=== PATIENT | female | born 1975 | race African-American/Black ===

== ENCOUNTER 2019-01-02 10:45 | Emergency (ER) | payer OTHER ==
[2019-01-02 10:56] VITALS: BP 130/93; PULSE 90; TEMP 98.5; BMI 17.7
[2019-01-02] MEDS ORDERED: IBUPROFEN 600 MG TABLET (FP) PO ONE ×2 (11:42→11:45)
[2019-01-02] MEDS ORDERED: AMOX TR/POT CLAV 875MG/125MG TABLETS (FP) PO ONE (11:42)
[2019-01-02] MEDS ORDERED: AMOX TR/POT CLAV 875MG/125MG TABLETS (FP) ONE (11:45)
--- NOTE | 2019-01-02 11:49 | PDOC ---
History of Present Illness - General Chief Complaint: Cold Symptoms Stated Complaint: SINUS INFECTION Time Seen by Provider: 01/02/19 11:19 History Source: Patient Exam Limitations: No Limitations - History of Present Illness Initial Comments: 01/02/19 12:20 Patient came to emergency department with complaints of left sided headache pain , jaw pain and multiple dental issues. States has had swollen lymph nodes to her scalp and posterior neck for many months where they're uncertain as to why. Patient is currently homeless, staying with various family members, has had multiple issues socially and is unable to care for self and she previously had. Patient denies fever, denies any swelling to her face however has exquisite pain that radiates into her jaw and left ear. Has cracked upper left molar and multiple missing teeth in various stages of decay. Timing/Duration: reports: getting worse Severity: reports: moderate Associated Symptoms: reports: facial pain, nasal congestion. denies: cough, earache, fever/chills Past History - Travel Traveled outside of the country in the last 30 days: No Close contact w/someone who was outside of country & ill: No - Past Medical History Allergies/Adverse Reactions: Allergies Allergy/AdvReac Type Severity Reaction Status Date / Time No Known Allergies Allergy Verified 01/02/19 10:51 Home Medications: Ambulatory Orders Amoxicillin - [Amoxicillin 500mg Capsule -] 500 mg PO TID #21 capsule 01/02/19 COPD: No CHF: No - Immunization History Immunization Up to Date: No - Suicide/Smoking/Psychosocial Hx Smoking History: Former smoker Have you smoked in the past 12 months: No If you are a former smoker, when did you quit?: 2019 Information on smoking cessation initiated: No Hx Alcohol Use: No Drug/Substance Use Hx: No Review of Systems - Review of Systems Able to Perform ROS?: Yes Is the patient limited [place] proficient: Yes Constitutional: Yes: Symptoms Reported, See HPI, Chills, Loss of Appetite, Malaise. No: Fever HEENTM: Yes: Symptoms Reported, See HPI ABD/GI: No: Symptoms Reported : No: Symptoms Reported Musculoskeletal: No: Symptoms Reported Integumentary: No: Symptoms Reported All Other Systems: Reviewed and Negative *Physical Exam - Vital Signs Last Vital Signs Temp Pulse Resp BP Pulse Ox 98.5 F 90 16 130/93 97 01/02/19 10:51 01/02/19 10:51 01/02/19 10:51 01/02/19 10:51 01/02/19 10:51 - Physical Exam General Appearance: Yes: Nourished, Appropriately Dressed, Apparent Distress, Mild Distress, Moderate Distress HEENT: positive: MARIA ISABEL, Pharynx Normal, Other (extensive dental issue with multiple caries, missing teeth, and cracked upper left tooth. No abscess noted to gingival borders, no swelling to face.). negative: TMs Normal (bilateral ears canals clogged with cerumen, unable to visualize TMs.) Neck: positive: Tender (lymphadenopathy to occiput and posterior cervical chains ), Lymphadenopathy (R), Lymphadenopathy (L) Respiratory/Chest: positive: Lungs Clear, Normal Breath Sounds Gastrointestinal/Abdominal: positive: Soft. negative: Tender Musculoskeletal: positive: Normal Inspection. negative: CVA Tenderness Extremity: positive: Normal Capillary Refill, Normal Inspection Integumentary: positive: Dry, Warm, Pale Neurologic: positive: financial analyst intern II-XII NML intact, Fully Oriented, Alert, Normal Mood/ Affect, Normal Response, Motor Strength 5/5 Progress Note - Progress Note Progress Note: Extensive dental issue, we will start amoxicillin and encouraged to seek dental evaluation for possible further extractions and treatment. *DC/Admit/Observation/Transfer Diagnosis at time of Disposition: Pain, dental - Discharge Dispostion Disposition: HOME Condition at time of disposition: Stable Decision to Admit order: No - Referrals Referrals: [facility] [Outside] - Patient Instructions Printed Discharge Instructions: DI for Dental Pain Additional Instructions: Rest, drink lots of fluids: Teas, water, soups Saltwater gargles/ keep mouth clean and rinse after each meal May use wet teabag for pain relief to area Avoid hard chewing foods, stick to ice cream, Jell-O, yogurt etc. Tylenol or Motrin for fever and pain Complete all medication as prescribed Seek dental appointment as soon as possible for evaluation of dental injury/pain Followup with private physician in one to 2 days as needed Return to emergency department for worsened symptoms, fevers, swelling to face or worsened pain - Post Discharge Activity
== END 2019-01-02 12:28 | disposition home or self-care (01) ==
LOC: JERFT 10:45
DX: K08.89 Other specified disorders of teeth and supporting structures (principal)
CPT/HCPCS: 99281-25

== ENCOUNTER 2022-06-02 23:00 | Observation (INO) | payer OTHER ==
[2022-06-03] MEDS ORDERED: IBUPROFEN 400 MG TABLET (FP) PO ONE ×2 (02:34→03:35)
[2022-06-03] MEDS ORDERED: ACETAMINOPHEN 1000 MG/100 ML BAG IVPB ONE ×2 (04:26→12:49)
[2022-06-03] MEDS ORDERED: ACETAMINOPHEN INJECTION 100 ML IVPB ONE ×2 (04:48→13:17)
[2022-06-03 06:53] LABS: BASO % 0.9 % (0-2.0); EOS % 10.4 % (0-4.5); HEMOGLOBIN 11.7 GM/dL (10.7-15.3); LYMPH % 20.8 % (8-40); MCH 29.5 pg (25.7-33.7); MCHC 33.4 g/dl (32.0-36.0); MEAN CELL VOLUME 88.1 fl (80-96); MONO % 7.9 % (3.8-10.2); PLATELET COUNT 249 10^3/uL (134-434); RBC 3.97 M/mm3 (3.60-5.2); RDW 14.7 % (11.6-15.6); WHITE BLOOD COUNT 6.4 K/mm3 (4.0-10.0)
[2022-06-03 07:13] LABS: CALCIUM 8.1 mg/dL (8.5-10.1)
[2022-06-03 07:14] LABS: ALBUMIN 3.1 g/dl (3.4-5.0); BLOOD UREA NITROGEN 10.8 mg/dL (7-18)
[2022-06-03 07:17] LABS: CREATININE 0.6 mg/dL (0.55-1.3)
[2022-06-03 07:18] LABS: BILIRUBIN,TOTAL 0.5 mg/dL (0.2-1); TOT PROT 7.6 g/dl (6.4-8.2)
[2022-06-03] MEDS ORDERED: LIDOCAINE 5% TOPICAL PATCH TP ONE (09:25)
[2022-06-03] MEDS ORDERED: LIDOCAINE 5% TOPICAL PATCH ONE (10:31)
[2022-06-03] MEDS ORDERED: KETOROLAC TROMETHAMINE 15 MG/ML VIAL IVPUSH ONE (12:48)
[2022-06-03] MEDS ORDERED: KETOROLAC TROMETHAMINE 15 MG/ML VIAL ONE (13:18)
[2022-06-03] MEDS ORDERED: KETOROLAC TROMETHAMINE 30 MG/1 ML VIAL IM ONE ×2 (13:21→16:57)
[2022-06-03] MEDS ORDERED: ACETAMINOPHEN 500 MG TABLET (FP) PO ONE ×2 (13:21→16:57)
[2022-06-03] MEDS ORDERED: KETOROLAC TROMETHAMINE 30 MG/1 ML VIAL ONE (13:24)
[2022-06-03] MEDS ORDERED: ACETAMINOPHEN 325 MG TABLET (FP) ONE (13:25)
[2022-06-03] MEDS: ACETAMINOPHEN 1000 MG/100 ML BAG IVPB PRN (21:07)
[2022-06-03] MEDS ORDERED: LIDOCAINE PATCH REMOVAL MC SCH (22:00)
[2022-06-03 23:46] VITALS: BMI 18.1
[2022-06-04] MEDS: ACETAMINOPHEN 1000 MG/100 ML BAG IVPB PRN (08:02)
[2022-06-04 10:44] LABS: BASO % 0.9 % (0-2.0); EOS % 9.2 % (0-4.5); HEMATOCRIT 33.4 % (32.4-45.2); LYMPH % 24.6 % (8-40); MCH 29.2 pg (25.7-33.7); MCHC 32.8 g/dl (32.0-36.0); MEAN CELL VOLUME 89.1 fl (80-96); MONO % 7.6 % (3.8-10.2); NEUT % 57.7 % (42.8-82.8); PLATELET COUNT 231 10^3/uL (134-434); RBC 3.75 M/mm3 (3.60-5.2); RDW 14.8 % (11.6-15.6); WHITE BLOOD COUNT 6.3 K/mm3 (4.0-10.0)
[2022-06-04] MEDS: ELVITEG/COB/EMTRI/TENOF (GENVOYA) TABLET (NF) PO SCH (10:47)
[2022-06-04] MEDS: ENOXAPARIN NA (PORCINE) 40 MG/0.4 ML DISP.SYRIN SQ SCH (10:48)
[2022-06-04 10:51] LABS: INR 1.13 (0.83-1.09)
[2022-06-04 10:54] LABS: ACTIVATED PTT 27.2 SECONDS (25.2-36.5)
[2022-06-04 11:20] LABS: CALCIUM 8.2 mg/dL (8.5-10.1)
[2022-06-04 11:21] LABS: ALBUMIN 2.9 g/dl (3.4-5.0); BLOOD UREA NITROGEN 18.3 mg/dL (7-18); MAGNESIUM 1.9 mg/dL (1.8-2.4)
[2022-06-04 11:24] LABS: CREATININE 0.7 mg/dL (0.55-1.3); PHOSPHOROUS 3.6 mg/dL (2.5-4.9)
[2022-06-04 11:25] LABS: BILIRUBIN,TOTAL 0.6 mg/dL (0.2-1); TOT PROT 7.3 g/dl (6.4-8.2)
[2022-06-04 11:53] LABS: ERYTHROCYTE SEDIMENTATION RATE 40 mm/hr (0-20)
[2022-06-04] MEDS: GABAPENTIN 100 MG CAPSULE PO SCH ×2 (13:50→21:05)
[2022-06-04] MEDS ORDERED: ONDANSETRON *ODT* 4 MG TABLET SL PRN (20:23)
[2022-06-04] MEDS ORDERED: LIDOCAINE 5% TOPICAL PATCH TP ONE (21:06)
[2022-06-04] MEDS: LIDOCAINE PATCH REMOVAL MC SCH (22:05)
[2022-06-05] MEDS ORDERED: ACETAMINOPHEN 1000 MG/100 ML BAG IVPB ONE ×3 (04:23→05:15)
[2022-06-05] MEDS: GABAPENTIN 100 MG CAPSULE PO SCH ×3 (06:57→21:52)
[2022-06-05] MEDS: ELVITEG/COB/EMTRI/TENOF (GENVOYA) TABLET (NF) PO SCH (10:08)
[2022-06-05] MEDS: ENOXAPARIN NA (PORCINE) 40 MG/0.4 ML DISP.SYRIN SQ SCH ×2 (10:08→10:27)
[2022-06-05] MEDS: THIAMINE HCL 100 MG TABLET (FP) PO SCH (10:08)
[2022-06-05] MEDS: LIDOCAINE PATCH REMOVAL MC SCH (21:52)
[2022-06-06] MEDS: GABAPENTIN 100 MG CAPSULE PO SCH (05:46)
[2022-06-06] MEDS: ELVITEG/COB/EMTRI/TENOF (GENVOYA) TABLET (NF) PO SCH (09:00)
[2022-06-06] MEDS: THIAMINE HCL 100 MG TABLET (FP) PO SCH (09:00)
[2022-06-06] MEDS: ENOXAPARIN NA (PORCINE) 40 MG/0.4 ML DISP.SYRIN SQ SCH (09:02)
[2022-06-06 09:03] VITALS: BP 113/75; PULSE 98; RESP 20; TEMP 98.3
== END 2022-06-06 14:17 | disposition home or self-care (01) ==
LOC: JER 23:00 → JERBED 06-03 14:27 → J6S 06-03 20:02
PROVIDERS: ADMIT Internal Medicine
PROC: 3E033NZ Introduction of Analgesics, Hypnotics, Sedatives into Peripheral Vein, Percutaneous Approach (ICD-10-PCS; principal; 2022-06-03)
PROC: 3E023NZ Introduction of Analgesics, Hypnotics, Sedatives into Muscle, Percutaneous Approach (ICD-10-PCS; 2022-06-03)
DX: M79.605 Pain in left leg (principal); G62.9 Polyneuropathy, unspecified; Z29.8 Encounter for other specified prophylactic measures; B20 Human immunodeficiency virus [HIV] disease
CPT/HCPCS: 0241U-QW; 36415; 73502-TC-RT-FY; 73721-RT-TC; 80053; 82550; 83735; 84100; 84439; 84443; 85025; 85610; 85651; 85730; 93971-TC; 96372; 96374; 96376; 97116-GP; 99285-25; G0378; Q0162

== ENCOUNTER 2022-08-10 18:58 | Inpatient (IN) | payer OTHER ==
[2022-08-10 21:20] LABS: BASO % 0.8 % (0-2.0); EOS % 13.7 % (0-4.5); HEMATOCRIT 33.4 % (32.4-45.2); HEMOGLOBIN 11.1 GM/dL (10.7-15.3); MCH 30.3 pg (25.7-33.7); MCHC 33.3 g/dl (32.0-36.0); MEAN CELL VOLUME 91.1 fl (80-96); MEAN PLT VOLUME 8.1 fl (7.5-11.1); MONO % 7.3 % (3.8-10.2); NEUT % 48.2 % (42.8-82.8); PLATELET COUNT 166 10^3/uL (134-434); RBC 3.66 M/mm3 (3.60-5.2); RDW 14.1 % (11.6-15.6); WHITE BLOOD COUNT 3.9 K/mm3 (4.0-10.0)
[2022-08-10 21:28] LABS: PROTHROMBIN TIME (PATIENT) 11.5 SEC (9.7-13.0)
[2022-08-10 21:31] LABS: ACTIVATED PTT 28.2 SECONDS (25.2-36.5)
[2022-08-10 22:03] LABS: ALBUMIN 3.3 g/dl (3.4-5.0); BLOOD UREA NITROGEN 8.6 mg/dL (7-18); CALCIUM 8.3 mg/dL (8.5-10.1)
[2022-08-10 22:06] LABS: CREATININE 0.7 mg/dL (0.55-1.3)
[2022-08-10 22:08] LABS: BILIRUBIN,TOTAL 0.5 mg/dL (0.2-1); TOT PROT 7.9 g/dl (6.4-8.2)
[2022-08-11] MEDS ORDERED: SULFAMETHOXAZOLE 80 MG/TRIMETHOPRIM 16 MG/ML VIAL IVPB ONE (02:40)
[2022-08-11] MEDS ORDERED: VANCOMYCIN 1 GM in D5W (PRE-DOCKED) 1,000 MG/250 ML IVPB ONE ×2 (02:40→06:30)
[2022-08-11] MEDS ORDERED: PIPERACILLIN/TAZOB 3.375 GM 3.375 GM in DEXTROSE 5%-WATER - 50 ML IVPB ONE (02:40)
[2022-08-11] MEDS ORDERED: PIPERACILLIN/TAZOB 3.375 GM 3.375 GM/50 ML BAG IVPB ONE (02:48)
[2022-08-11] MEDS ORDERED: SULFAMETHOXAZOLE/TRIMETHOPRIM 800MG/160MG D.S. TABLET PO SCH (03:45)
[2022-08-11] MEDS ORDERED: methylPREDNISolone NA SUCC 125 MG/2 ML VIAL IVPUSH ONE (03:56)
[2022-08-11] MEDS ORDERED: methylPREDNISolone NA SUCC 125 MG/2 ML VIAL ONE (04:01)
[2022-08-11] MEDS ORDERED: SULFAMETHOXAZOLE/TRIMETHOPRIM 800MG/160MG D.S. TABLET ONE ×2 (04:30→04:32)
[2022-08-11] MEDS: predniSONE 20 MG TABLET (UD) PO SCH ×3 (04:41→22:02)
[2022-08-11 05:30] LABS: ARTERIAL BLD GAS O2 SATURATION 81.3 % (95-98); ARTERIAL BLOOD GAS pH 7.407 (7.350-7.450)
[2022-08-11 05:58] LABS: ALBUMIN 2.9 g/dl (3.4-5.0); BLOOD UREA NITROGEN 8.5 mg/dL (7-18); MAGNESIUM 1.8 mg/dL (1.8-2.4)
[2022-08-11 06:02] LABS: CREATININE 0.8 mg/dL (0.55-1.3); PHOSPHOROUS 4.2 mg/dL (2.5-4.9)
[2022-08-11 06:03] LABS: BILIRUBIN,TOTAL 0.4 mg/dL (0.2-1); TOT PROT 7.1 g/dl (6.4-8.2)
[2022-08-11] MEDS ORDERED: VANCOMYCIN 1 GM/200 ML PREMIX BAG (RESTRICTED TO ID ONLY) IVPB ONE (07:30)
[2022-08-11 08:06] VITALS: RESP 18
[2022-08-11] MEDS: ENOXAPARIN NA (PORCINE) 40 MG/0.4 ML DISP.SYRIN SQ SCH ×2 (09:51→09:55)
[2022-08-11] MEDS: NICOTINE 7 MG/24 HOURS TOPICAL PATCH TD SCH ×2 (09:51→09:55)
[2022-08-11] MEDS: LORATADINE 10 MG TABLET PO SCH (09:52)
[2022-08-11] MEDS ORDERED: PIPERACILLIN/TAZOB 3.375 GM 3.375 GM in DEXTROSE 5%-WATER - 50 ML IVPB SCH (10:00)
[2022-08-11] MEDS ORDERED: VANCOMYCIN 1 GM in D5W (PRE-DOCKED) 1,000 MG/250 ML IVPB SCH (10:00)
[2022-08-11] MEDS ORDERED: ELVITEG/COB/EMTRI/TENOF (GENVOYA) TABLET (NF) PO SCH (10:00)
[2022-08-11] MEDS ORDERED: POTASSIUM CHLORIDE TABS 20 MEQ TABLET.ER (FP) PO ONE (10:30)
[2022-08-11 11:57] LABS: BASO % 0.4 % (0-2.0); EOS % 1.8 % (0-4.5); HEMATOCRIT 32.5 % (32.4-45.2); HEMOGLOBIN 11.1 GM/dL (10.7-15.3); LYMPH % 13.2 % (8-40); MCH 30.8 pg (25.7-33.7); MEAN CELL VOLUME 90.3 fl (80-96); MEAN PLT VOLUME 8.4 fl (7.5-11.1); MONO % 2.8 % (3.8-10.2); NEUT % 81.8 % (42.8-82.8); PLATELET COUNT 161 10^3/uL (134-434); WHITE BLOOD COUNT 5.5 K/mm3 (4.0-10.0)
[2022-08-11] MEDS: FLUCONAZOLE 100 MG TABLET (UD) PO SCH (13:58)
[2022-08-11] MEDS: CEFTRIAXONE 2 GM in DEXTROSE 5%-WATER 100 ML IVPB SCH (13:58)
[2022-08-11] MEDS: AZITHROMYCIN IVPB 500 MG/250 ML BAG IVPB SCH ×2 (13:58→17:00)
[2022-08-11] MEDS: GABAPENTIN 300 MG CAPSULE PO SCH (22:02)
[2022-08-12] MEDS ORDERED: VANCOMYCIN 1 GM/200 ML PREMIX BAG (RESTRICTED TO ID ONLY) IVPB SCH (07:30)
[2022-08-12] MEDS ORDERED: PIPERACILLIN/TAZOB 3.375 GM 3.375 GM in DEXTROSE 5%-WATER - 50 ML IVPB SCH (10:00)
[2022-08-12] MEDS: predniSONE 20 MG TABLET (UD) PO SCH ×2 (12:08→21:08)
[2022-08-12] MEDS: ENOXAPARIN NA (PORCINE) 40 MG/0.4 ML DISP.SYRIN SQ SCH (12:08)
[2022-08-12] MEDS: NICOTINE 7 MG/24 HOURS TOPICAL PATCH TD SCH (12:08)
[2022-08-12] MEDS: LORATADINE 10 MG TABLET PO SCH (12:08)
[2022-08-12] MEDS: FLUCONAZOLE 100 MG TABLET (UD) PO SCH (12:08)
[2022-08-12] MEDS: CEFTRIAXONE 2 GM in DEXTROSE 5%-WATER 100 ML IVPB SCH (12:09)
[2022-08-12] MEDS: AZITHROMYCIN IVPB 500 MG/250 ML BAG IVPB SCH ×2 (12:09→12:17)
[2022-08-12] MEDS: GABAPENTIN 300 MG CAPSULE PO SCH (21:08)
[2022-08-13] MEDS: LORATADINE 10 MG TABLET PO SCH (09:49)
[2022-08-13] MEDS: predniSONE 20 MG TABLET (UD) PO SCH ×2 (09:49→22:08)
[2022-08-13] MEDS: ENOXAPARIN NA (PORCINE) 40 MG/0.4 ML DISP.SYRIN SQ SCH (09:50)
[2022-08-13] MEDS: NICOTINE 7 MG/24 HOURS TOPICAL PATCH TD SCH (09:50)
[2022-08-13] MEDS: AZITHROMYCIN 250 MG TABLET PO SCH (09:53)
[2022-08-13] MEDS: FLUCONAZOLE 100 MG TABLET (UD) PO SCH (09:53)
[2022-08-13 13:04] VITALS: PULSE 75
[2022-08-13] MEDS ORDERED: MELATONIN 1 MG TABLET PO ONE ×2 (20:42→22:15)
[2022-08-13] MEDS: GABAPENTIN 300 MG CAPSULE PO SCH (22:09)
[2022-08-13 23:42] VITALS: BMI 16.0
[2022-08-14 05:33] VITALS: BP 152/85; TEMP 97.7
[2022-08-14] MEDS: NICOTINE 7 MG/24 HOURS TOPICAL PATCH TD SCH (09:50)
[2022-08-14] MEDS: ENOXAPARIN NA (PORCINE) 40 MG/0.4 ML DISP.SYRIN SQ SCH (09:50)
[2022-08-14] MEDS: FLUCONAZOLE 100 MG TABLET (UD) PO SCH (09:52)
[2022-08-14] MEDS: LORATADINE 10 MG TABLET PO SCH (09:52)
[2022-08-14] MEDS: predniSONE 20 MG TABLET (UD) PO SCH (09:52)
[2022-08-14] MEDS: AZITHROMYCIN 250 MG TABLET PO SCH (09:52)
[2022-08-15] MEDS ORDERED: SULFAMETHOXAZOLE/TRIMETHOPRIM 800MG/160MG D.S. TABLET PO SCH (10:00)
== END 2022-08-14 14:24 | disposition home or self-care (01) | DRG 893 ==
LOC: JER 18:58 → JERBED 08-11 02:44 → J6S 08-11 05:51
PROVIDERS: ADMIT Family Medicine; ATTEND Internal Medicine
DX: J18.9 Pneumonia, unspecified organism (principal); B20 Human immunodeficiency virus [HIV] disease; B37.0 Candidal stomatitis; R64 Cachexia; I24.9 Acute ischemic heart disease, unspecified; D72.819 Decreased white blood cell count, unspecified; F12.90 Cannabis use, unspecified, uncomplicated; F17.210 Nicotine dependence, cigarettes, uncomplicated; L29.9 Pruritus, unspecified; Z59.00 Homelessness unspecified; Z88.0 Allergy status to penicillin; Z68.1 Body mass index [BMI] 19.9 or less, adult; Z91.14 Patient's other noncompliance with medication regimen
CPT/HCPCS: 0241U-QW; 36415; 36600; 71045-TC-FY; 71275-TC; 80053; 82803; 83615; 83735; 84100; 84443; 84484; 84703; 85025; 85610; 85730; 86359; 86360; 86850; 86900; 86901; 87040; 87070; 87077; 87116; 87205; 87206; 87449; 87556; 87899; 93005; 93010; 99285-25; Q9967